=== PATIENT | female | born 1995 ===

== ENCOUNTER 2022-08-29 02:44 | Emergency (ER) | payer OTHER, SELFPAY ==
[2022-08-29 02:46] VITALS: BP 127/76; PULSE 118; RESP 18; TEMP 37; O2SAT 100; BMI 18.0
--- OUTSIDE RECORDS SUMMARY | 2022-08-29 03:30 | XMS_ITS | Continuity of Care Document ---
Author Name Unknown Organization [facility] Primary [facility] [place] Address [address] [place] [address]- Care Team Providers Care Set O Type Operator Name Role Phone Madiha Alvarado NP Primary Care Physician ( [phone] Encounter [facility] Date(s): 04/28/21 - 05/28/21 [facility] Care [place] [address] [place] [address]- Attending Physician: Lopez Weaver Admitting Physician: Lopez Weaver Referring Physician: AdmtrLopez Allergies, Adverse Reactions, Alerts Substance Reaction Severity Status Seasonale Active Immunizations Given and Recorded Vaccine Date Status Refusal Reason SARS-CoV-2 (COVID-19) [id number] vaccine 12/26/20 R ecorded influenza virus vaccine, inactivated 06/16/20 Viet rded influenza virus vaccine, inactivated 04/15/16 Viet rded tetanus/diphtheria/pertussis, acel(Tdap) 06/16/20 Recorded Problem List Condition Effective Dates Status Health Status Inform ant Generalized anxiety disorder(Confirmed) Active Mild major depression, singl e episode(Confirmed) Active Underweight(Confirmed) Active Social History Social History Type Response Smoking Status Never (less than 100 in lifetime) entered on: 08/27/20 Sex
--- OUTSIDE RECORDS SUMMARY | 2022-08-29 03:30 | XMS_ITS | Continuity of Care Document ---
Author Name Unknown Organization [facility] [place] Address [address] [place] [address]- Care Team Providers Care Rn Home Care Name Role Phone Madiha Alvarado NP Primary Care Physician Encounter [facility] Date(s): 05/12/21 - 06/11/21 [facility] [place] [address] [place] [address]- Allergies, Adverse Reactions, Alerts Substance Reaction Severity Status Seasonale Active Immunizations Given and Recorded Vaccine Date Status Refusal Reason SARS-CoV-2 (COVID-19) mRNA-1273 vaccine 12/26/20 R ecorded influenza virus vaccine, [...]
--- OUTSIDE RECORDS SUMMARY | 2022-08-29 03:30 | XMS_ITS | Continuity of Care Document ---
Author Name Unknown Organization [facility] Primary [facility] [place] Address [address] [place] [address]- Care Team Providers Care City Marshal Name Role Phone Madiha Alvarado NP Primary Care Physician Encounter [facility] Date(s): 12/17/20 - 01/16/21 [facility] Care [place] [address] [place] [address]- Allergies, Adverse Reactions, Alerts Substance Reaction Severity Status Seasonale Active Immunizations Given and Recorded Vaccine Date Status Refusal Reason influenza virus vaccine, inactivated 06/16/20 Viet rded influenza virus vaccine, inactivated 04/15/16 Viet rded tetanus/diphtheria/pertussis, acel(Tdap) 06/16/20 Recorded Problem List Condition Effective Dates Status Health Status Inform ant Generalized anxiety disorder(Confirmed) Active Mild major depression, singl e episode(Confirmed) Active Social History Social History Type Response Smoking Status Never (less than 100 in lifetime) entered on: 08/27/20 Sex
--- OUTSIDE RECORDS SUMMARY | 2022-08-29 03:30 | XMS_ITS | Continuity of Care Document ---
Author Name Unknown Organization [facility] Primary [place] Address [address] [place] [address]- Care Team Providers Care Grinding Machine Tender Name Role Phone Madiha Alvarado NP Primary Care Physician Encounter [facility] Date(s): 05/27/21 - 06/26/21 [facility] [place] [address] [place] [address]- Allergies, Adverse Reactions, Alerts Substance Reaction Severity [...]
--- OUTSIDE RECORDS SUMMARY | 2022-08-29 03:30 | XMS_ITS | Continuity of Care Document ---
Author Name Unknown Organization [facility] Primary [facility] [place] Address [address] [place] [address]- Care Team Providers Care Coin Box Collector Name Role Phone Madiha Alvarado NP Primary Care Physician ( [phone] Encounter [facility] Date(s): 01/08/21 - 02/07/21 [facility] Care [place] [address] [place] [address]- Attending Physician: Lopez Weaver Admitting Physician: Lopez [...]
--- OUTSIDE RECORDS SUMMARY | 2022-08-29 03:30 | XMS_ITS | Continuity of Care Document ---
Author Name Unknown Organization [facility] [place] Address [address] [place] [address]- Care Team Providers Care Gastroenterology Nurse Name Role Phone Madiha Alvarado NP Primary Care Physician Encounter [facility] Date(s): 05/06/21 - 06/05/21 [facility] [place] [address] [place] [address]- Attending Physician: Lopez Weaver Admitting Physician: Lopez Weaver Referring Physician: AdmtrLopez Allergies, Adverse Reactions, Alerts Substance Reaction Severity Status Seasonale Active Immunizations Given and Recorded Vaccine Date Status Refusal Reason SARS-CoV-2 (COVID-19) mRNA-1271 vaccine 12/26/20 R ecorded influenza virus vaccine, [...]
--- OUTSIDE RECORDS SUMMARY | 2022-08-29 03:30 | XMS_ITS | Continuity of Care Document ---
Author Name Unknown Organization [facility] Primary [facility] [place] Address [address] [place] [address]- Care Team Providers Care Bill Recapitulation Clerk Name Role Phone Madiha Alvarado NP Primary Care Physician Encounter [facility] Date(s): 03/10/21 - 04/09/21 [facility] Care [place] [address] [place] [address]- Allergies, Adverse Reactions, Alerts Substance Reaction Severity [...]
--- OUTSIDE RECORDS SUMMARY | 2022-08-29 03:30 | XMS_ITS | Continuity of Care Document ---
Author Name Unknown Organization [facility] Primary [place] Address [address] [place] [address]- Care Team Providers Care Broadcast Operations Manager Name Role Phone Madiha Alvarado NP Primary Care Physician Encounter [facility] Date(s): 11/03/21 - 12/03/21 [facility] [place] [address] [place] [address]- Attending Physician: Admtr, [id number] Admitting Physician: Admtr, Ar8 Referring Physician: Admtr, Ar8 Allergies, Adverse Reactions, Alerts Substance Reaction Severity Status Seasonale Active Immunizations Given and Recorded Vaccine Date Status Refusal Reason SARS-CoV-2 (COVID-19) mRNA-1270 vaccine 12/26/20 R ecorded influenza virus vaccine, inactivated 06/16/20 Viet rded influenza virus vaccine, inactivated 04/15/16 Viet rded tetanus/diphtheria/pertussis, acel(Tdap) 06/16/20 Recorded Medications busPIRone 5 mg oral tablet 1, tablet, By Mouth, 3 times a day, # 90 tablet, Refills 0, Route to Pharmacy Electronically, [facility] #[id number], 172, cm, 08/10/21 12:15:00 EDT, Height, 52, kg, 08/10/21 12:15:00 EDT, Dry Weight Start Date: 10/22/21 Status: Ordered famotidine 20 mg oral tablet See Instructions, TAKE 1 TABLET BY MOUTH TWICE DAILY, # 60 tablet, Refills 2, Instructions Replace Required Details, Route to Pharmacy Electronically, [facility] #[id number], 174, cm, 03/04/21 10:54:00 EST, Height Start Date: 05/25/21 Status: Ordered omeprazole 20 mg oral enteric coated capsule 1 capsule, By Mouth, 2 times a day, # 60 capsule, 2 Refills, [facility] #[id number], 174, cm, 03/04/21 10:54:00 EST, Height Start Date: 07/02/21 Status: Ordered sertraline 50 mg oral tablet 1.5 tablet = 75 mg, By Mouth, Daily, NEW DOSE, # 135 tablet, 1 Refills, Maintenance, 05/03/21 11:28:00 EST, Tablet, [facility] #[id number], Partial fill upon patient request if the prescription is for a schedule II opioid drug., 174, cm, 03/04/21... Start Date: 05/03/21 Status: Ordered Problem List Condition Effective Dates Status Health Status Inform ant Generalized anxiety disorder(Confirmed) Active Mild major depression, singl e episode(Confirmed) Active Underweight(Confirmed) Active Social History Social History Type Response Smoking Status Never (less than 100 in lifetime) entered on: 08/27/20 Sex Care Team Personnel Name: Madiha Alvarado NP Address: [address] [place] [id number]
--- OUTSIDE RECORDS SUMMARY | 2022-08-29 03:30 | XMS_ITS | Continuity of Care Document ---
Author Name Unknown Organization [facility] Primary [facility] [place] Address [address] [place] [address]- Care Team Providers Care Project Leader Name Role Phone Madiha Alvarado NP Primary Care Physician ( [phone] Encounter [facility] Date(s): 01/13/21 - 02/12/21 [facility] Care [place] [address] [place] [address]- Allergies, Adverse Reactions, Alerts Substance Reaction Severity [...]
--- NOTE | 2022-08-29 03:32 | ED.WOUNDLAC ---
HPI - Wound/Laceration General Chief Complaint: Wound/Laceration Stated Complaint: lac on arm Time Seen by Provider: 08/29/22 03:08 Source: patient Mode of arrival: ambulatory Limitations: no limitations History of Present Illness HPI narrative: 27-year-old female presents with large laceration of the right volar forearm. [facility] Patient has btlb-fq-vweoifim pain. Worse with movement. Pain does not radiate. There is no numbness or tingling. There is no weakness. Patient reports tetanus is up-to-date. Related Data Previous Rx's Medication Instructions Recorded azithromycin 250 mg tablet See Rx Instructions PO .COMPLEX #6 01/27/21 tabs Allergies Allergy/AdvReac Type Severity Reaction Status Date / Time No Known Allergies Allergy Verified 08/29/22 02:48 Review of Systems Review of Systems: CONSTITUTIONAL: Denies weight loss, fever and chills. HEENT: Denies changes in vision and hearing. RESPIRATORY: Denies SOB and cough. CV: Denies palpitations no CP. GI: Denies abdominal pain, nausea, vomiting and diarrhea. : Denies dysuria and urinary frequency. MSK: Denies myalgia and joint pain. SKIN: Denies rash and pruritus. NEUROLOGICAL: Denies headache and syncope. PSYCHIATRIC: Denies recent changes in mood. Denies anxiety and depression. All other ROS are negative unless in HPI PMFSH Social History Social History Alcohol intake: current Alcohol intake frequency: holidays/special occasions only Alcohol type: beer Smoked in Last 30 Days: No Use of substances other than those prescribed or required for medical reasons: No Substance Use Type: Marijuana Substance Use Frequency: Socially Last Used Substance: Hours (ago) Any prior treatment program specific to substance use: No Advance Directives: No Advance Directives Information Provided: No Patient : No Physical Exam Vital Signs: Vital Signs: Last Vital Signs Temp 98.6 F 08/29/22 05:04 Pulse 75 08/29/22 05:04 Resp 16 08/29/22 05:04 BP 125/78 08/29/22 05:04 Pulse Ox 100 08/29/22 05:04 O2 Del Method Room Air 08/29/22 05:04 BMI result Body Mass Index 18.0 GEN: Well developed, no acute distress, alert, oriented HEENT: Normocephalic, atraumatic, normal external ears, nose appears normal Eyes: Normal to appearance Neck: Supple, no lymphadenopathy Respiratory: Talks in complete sentences, no respiratory distress Extremities: No clubbing cyanosis or edema Neurologic: No focal neurologic deficits, cranial nerves 2-12 intact, gait normal neurovascular intact distal to extremity injury. Skin: No rash 7 cm lacerations right volar forearm Course Course Course Narrative: Patient presents with right forearm laceration. Laceration was repaired as described in procedure note. Wound care instructions were provided to patient. Patient's tetanus is up-to-date. Medical Decision Making Medical Decision Making MDM Narrative: Patient presents with laceration of the right forearm. The patient is able to flex and extend against resistance. There is no evidence of tendon damage. She is neurovascular intact. Laceration repair will be undertaken. Wound care instructions will be provided to the patient. Differential Diagnosis Differential Diagnoses: The differential diagnosis associated with the presentation includes (Forearm laceration) Form laceration Procedures Laceration Laceration 1: Site: upper extremity Side (If applicable): right Size (cm): 7 Description: linear Depth: simple, single layer Local Anesthetic: lidocaine 2% Amount of anesthesia used (mL): 6 Pre-repair: wound explored, irrigated extensively and deep structures intact Skin layer closed with: nylon Size (cm): 4-0 Number of sutures: 10 Technique: simple, interrupted Discharge Plan Discharge Clinical Impression: Laceration Patient Disposition: Home, Self-Care Instructions: Laceration (ED) Prescriptions: No Action azithromycin 250 mg tablet See Rx Instructions PO .COMPLEX Qty: 6 0RF Rx Instructions: take 500 mg today (day 1), then 250 mg for 4 days (days 2-5) PO Referrals: Physician,Unknown J [Primary Care Provider] - (7-10 days suture removal either in the emergency department or by primary care provider.)
[2022-08-29 04:00] VITALS: BP 130/78; PULSE 90; RESP 18; TEMP 37; O2SAT 100
[2022-08-29 05:04] VITALS: BP 125/78; PULSE 75; RESP 16; TEMP 37; O2SAT 100
== END 2022-08-29 05:50 | disposition home or self-care (01) ==
PROVIDERS: Emergency Provider Emergency Medicine
DX: S51.811A Laceration without foreign body of right forearm, initial encounter (principal); M79.601 Pain in right arm; W26.9XXA Contact with unspecified sharp object(s), initial encounter; Y93.9 Activity, unspecified; Y92.9 Unspecified place or not applicable; Y99.9 Unspecified external cause status; Z79.899 Other long term (current) drug therapy
CPT/HCPCS: 12032; 99284

== ENCOUNTER 2022-09-04 22:28 | Emergency (ER) | payer OTHER, SELFPAY ==
[2022-09-04 22:31] VITALS: BP 119/75; PULSE 79; RESP 18; TEMP 36.6; O2SAT 96; BMI 18.5
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
== END 2022-09-04 23:52 | disposition home or self-care (01) ==
PROVIDERS: Emergency Provider Emergency Medicine
DX: S06.0X0A Concussion without loss of consciousness, initial encounter (principal); Y04.2XXA Assault by strike against or bumped into by another person, initial encounter; Z48.02 Encounter for removal of sutures; Y93.F9 Activity, other caregiving; Y92.230 Patient room in hospital as the place of occurrence of the external cause; Y99.0 Civilian activity done for income or pay
CPT/HCPCS: 99282; 99283